=== PATIENT | male | born 1980 | race Caucasian/White ===

== ENCOUNTER 2018-07-02 19:15 | Emergency (ER) | payer OTHER, SELFPAY ==
[~2018-07-02] VITALS: Ht 170.2 cm; Wt 78.6 kg
[2018-07-02 19:40] VITALS: BP 121/78
--- NOTE | 2018-07-02 20:27 | NUR ---
PA AT BEDSIDE FOR ASSESSMENT
== END 2018-07-02 20:45 | disposition home or self-care (01) ==
LOC: ED 20:39
DX: S83.91XA Sprain of unspecified site of right knee, initial encounter (principal); X50.1XXA Overexertion from prolonged static or awkward postures, initial encounter; Y93.89 Activity, other specified; Y92.009 Unspecified place in unspecified non-institutional (private) residence as the place of occurrence of the external cause; Y99.8 Other external cause status
CPT/HCPCS: 29505; 99283